=== PATIENT | female | born 1985 | race Hispanic/Latino ===

== ENCOUNTER 2017-06-28 20:47 | Emergency (ER) | payer OTHER, SELFPAY ==
[2017-06-28] MEDS ORDERED: Ibuprofen 800 MG TAB ONE (21:00)
[2017-06-28] MEDS ORDERED: Cephalexin 250 MG CAP ONE (21:00)
== END 2017-06-28 21:03 | disposition home or self-care (01) ==
LOC: NAV ERS 20:47
DX: L03.012 Cellulitis of left finger (principal); F17.210 Nicotine dependence, cigarettes, uncomplicated
CPT/HCPCS: 99282

== ENCOUNTER 2018-02-09 15:29 | Emergency (ER) | payer SELFPAY ==
[2018-02-09] MEDS ORDERED: Ondansetron ODT 4 MG TAB ONE ×2 (15:38→15:39)
[2018-02-09] MEDS ORDERED: Lidocaine Viscous Sol 2% 15 ml UD Cup ONE (15:38)
[2018-02-09] MEDS ORDERED: Mag-Al Plus 1200 MG/1200 MG/120 MG/30 ML UDCUP ONE (15:39)
[2018-02-09 17:02] LABS: Hemoglobin 11.2 g/dL (12.0-16.0); Mean Corpuscular HGB CONC 28.7 g/dL (32.0-36.0); Mean Corpuscular Volume 76.7 fl (81.0-99.0); Mean Platelet Volume 7.2 fL (7.4-10.4); Platelet Count 318 thou/uL (130-400); RBC Distribution Width 14.8 % (11.5-14.5); Red Blood Cell (RBC) Count 5.07 mill/uL (4.20-5.40); White Blood Cell (WBC) Count 11.9 thou/uL (4.8-10.8)
[2018-02-09 17:10] LABS: ALT (SGPT) 28 U/L (8-55); AST (SGOT) 41 U/L (5-34); Albumin 4.4 g/dL (3.5-5.0); Alkaline Phosphatase 94 U/L (40-150); Anion Gap 15 mmol/L (10-20); BUN (Urea Nitrogen) 10 mg/dL (7.0-18.7); Bilirubin, Total 0.4 mg/dL (0.2-1.2); Calc. Creatinine Clearance 0 mL/min (70-130); Calcium 9.1 mg/dL (7.8-10.44); Carbon Dioxide 24 mmol/L (22-29); Chloride 106 mmol/L (98-107); Estimated GFR-MDRD Greater than 90; Globulin 3.4 g/dL (2.4-3.5); Glucose 105 mg/dL (70-105); Lipase 30 U/L (8-78); Potassium 3.8 mmol/L (3.5-5.1); Protein, Total 7.8 g/dL (6.0-8.3); Sodium 141 mmol/L (136-145)
[2018-02-09 17:16] LABS: Bilirubin Negative (Negative); Blood, Urine Negative (Negative); Clarity Clear (Clear); Glucose, Urine (Dipstick) Negative (Negative); Leukocyte Negative (Negative); Nitrite Negative (Negative); Protein, Urine (Dipstick) 30 mg/dL (Neg-Trace); Specific Gravity, Urine 1.026 (1.002-1.036); Urobilinogen 0.2 mg/dL (0.2-1.0); pH, Urine 5.5 (5.0-9.0)
[2018-02-09 17:17] LABS: Pregnancy Test - Urine (BHCG) Negative (Negative); Pregu Control Background? CLEAR/WHITE (CLR/WHITE); Pregu Control Bar Appear? YES (CONTROL BAR); Specific Gravity 1.026 (1.002-1.036)
[2018-02-09 17:27] LABS: Bacteria/HPF 1+ HPF (None Seen); RBC/HPF 0-3 HPF (0-3); WBC/HPF 0-3 HPF (0-3)
[2018-02-09 17:42] LABS: #Lymphocytes 0.5 thou/uL (1.20-3.40); #Monocytes 0.7 thou/uL (0.11-0.59); #Neutrophils 10.7 thou/uL (1.40-6.50); %Basophils 0.2 % (0.0-1.0); %Eosinophils 0.1 % (0.0-10.0); %Lymphocytes 4.5 % (21.0-51.0); %Monocytes 5.5 % (0.0-10.0); %Neutrophils 89.7 % (42.0-75.0); Hypochromia SLIGHT = 6-15 cells (100X) (0-5/hpf); MDiff Complete? YES; Microcytosis SLIGHT = 6-15 cells (100X) (0-5/hpf); PLT Morphology Comment Appears Adequate
[2018-02-09] MEDS ORDERED: Diphenoxylate HCl/Atropine Tablet ONE (17:45)
== END 2018-02-09 17:52 | disposition home or self-care (01) ==
LOC: NAV ERS 15:29
DX: K52.9 Noninfective gastroenteritis and colitis, unspecified (principal); F17.210 Nicotine dependence, cigarettes, uncomplicated
CPT/HCPCS: 80053; 81003; 81015; 81025; 82150; 83690; 85025; 99284; Q0162

== ENCOUNTER 2018-04-16 10:14 | Emergency (ER) | payer SELFPAY ==
[2018-04-16] MEDS ORDERED: predniSONE 20 MG TAB ONE (10:46)
== END 2018-04-16 10:50 | disposition home or self-care (01) ==
LOC: NAV ERS 10:14
DX: T78.40XA Allergy, unspecified, initial encounter (principal); F17.210 Nicotine dependence, cigarettes, uncomplicated
CPT/HCPCS: 99283; J7506

== ENCOUNTER 2019-11-03 11:14 | Emergency (ER) | payer SELFPAY | END 2019-11-03 12:34 | disposition home or self-care (01) | LOC: NAV ERS 11:14 | DX: J11.1 Influenza due to unidentified influenza virus with other respiratory manifestations (principal); F17.210 Nicotine dependence, cigarettes, uncomplicated | CPT/HCPCS: 87804; 99283 ==

== ENCOUNTER 2024-10-23 16:26 | Emergency (ER) | payer BC ==
[2024-10-23] MEDS ORDERED: Ibuprofen 200 MG TAB ONE (17:09)
[2024-10-23] MEDS ORDERED: guaiFENesin ER 600 MG TAB ONE (18:02)
[2024-10-23] MEDS ORDERED: Acetaminophen 500 MG TAB ONE (18:02)
== END 2024-10-23 18:27 | disposition home or self-care (01) ==
LOC: NAV ERS 16:26
DX: J11.1 Influenza due to unidentified influenza virus with other respiratory manifestations (principal); F17.210 Nicotine dependence, cigarettes, uncomplicated
CPT/HCPCS: 87428; 99283

== ENCOUNTER 2025-03-26 16:57 | Emergency (ER) | payer BC ==
[2025-03-26] MEDS ORDERED: Naproxen 500 MG TAB ONE (17:20)
[2025-03-26] MEDS ORDERED: Acetaminophen 500 MG TAB ONE (17:20)
== END 2025-03-26 18:30 | disposition home or self-care (01) ==
LOC: NAV ERS 16:57
DX: S61.214A Laceration without foreign body of right ring finger without damage to nail, initial encounter (principal); F17.210 Nicotine dependence, cigarettes, uncomplicated; W23.0XXA Caught, crushed, jammed, or pinched between moving objects, initial encounter
CPT/HCPCS: 99283

== ENCOUNTER 2025-07-21 13:51 | Emergency (ER) | payer BC ==
[2025-07-21] MEDS ORDERED: Ibuprofen 200 MG TAB ONE (14:10)
== END 2025-07-21 14:40 | disposition home or self-care (01) ==
LOC: NAV ERS 13:51
DX: S63.616A Unspecified sprain of right little finger, initial encounter (principal); F17.210 Nicotine dependence, cigarettes, uncomplicated; W20.8XXA Other cause of strike by thrown, projected or falling object, initial encounter
CPT/HCPCS: 99283

== ENCOUNTER 2025-08-19 03:26 | Emergency (ER) | payer BC ==
[2025-08-19] MEDS ORDERED: Ketorolac Tromethamine 30 MG (1 mL) VIAL ONE (03:51)
[2025-08-19] MEDS ORDERED: Ondansetron PF 4 MG/2 ML Vial ONE (03:51)
[2025-08-19 03:56] LABS: Glucose, Urine (Dipstick) Negative (Negative); Leukocyte Negative (Negative); Protein, Urine (Dipstick) 30 mg/dL (Neg-Trace); Specific Gravity, Urine Greater/Equal 1.030 (1.005-1.030)
[2025-08-19 03:57] LABS: Pregnancy Test - Urine (BHCG) Negative (Negative); Pregu Control Background? CLEAR/WHITE (CLR/WHITE); Pregu Control Bar Appear? YES (CONTROL BAR)
[2025-08-19 03:59] LABS: #Basophils 0.1 thou/uL (0.0-0.2); #Eosinophils 0.0 thou/uL (0.0-0.7); #Lymphocytes 0.5 thou/uL (1.20-3.40); #Monocytes 0.5 thou/uL (0.11-0.59); #Neutrophils 7.9 thou/uL (1.40-6.50); %Basophils 1.0 % (0.0-1.0); %Eosinophils 0.0 % (0.0-10.0); %Lymphocytes 5.9 % (21.0-51.0); %Monocytes 6.0 % (0.0-10.0); %Neutrophils 87.0 % (42.0-75.0); Hematocrit 40.7 % (36.0-47.0); Hemoglobin 13.4 g/dL (12.0-16.0); Mean Corpuscular Hemoglobin 26.9 pg (27.0-31.0); Mean Corpuscular Volume 81.9 fl (78.0-98.0); Platelet Count 332 10x3/uL (130-400); Red Blood Cell (RBC) Count 4.97 mill/uL (4.20-5.40); White Blood Cell (WBC) Count 9.1 10x3/uL (4.8-10.8)
[2025-08-19 04:02] LABS: Bacteria/HPF 2+ HPF (None Seen); CAUTI Indications for Culture Dysuria,urgency,freq; Mucous/LPF 1+ LPF (<2+)
[2025-08-19 04:03] LABS: Urine Culture Reflex No No
[2025-08-19 04:13] LABS: ALT (SGPT) 26 U/L (Less than 34); AST (SGOT) 38 U/L (11-34); Albumin 4.0 g/dL (3.1-4.5); Alkaline Phosphatase 86 U/L (40-110); Anion Gap 17 mmol/L (10-20); BUN (Urea Nitrogen) 18 mg/dL (7.0-18.7); Bilirubin, Total 0.8 mg/dL (0.3-1.2); Calc. Creatinine Clearance 0 mL/min (70-130); Calcium 8.9 mg/dL (7.8-10.44); Carbon Dioxide 16 mmol/L (22-29); Chloride 107 mmol/L (98-107); Globulin 3.4 g/dL (2.4-3.5); Glucose 112 mg/dL (70-105); Lipase 10 U/L (8-78); Potassium 3.5 mmol/L (3.5-5.1); Sodium 136 mmol/L (136-145)
[2025-08-19] MEDS ORDERED: cefTRIAXone (ROCEPHIN) 1 GM VIAL ONE (04:34)
[2025-08-19 05:09] LABS: Bicarbonate (HCO3v) 20.2 mmol/L (22.0-28.0); CO2 Tension (PvCO2) 46.4 mmHg (42.0-51.0); Calcium, Ionized 1.18 mmol/L (1.15-1.33); Chloride 111 mmol/L (98-107); Hemoglobin - Calc 13.1 g/dL (12.0-16.0); Potassium 3.8 mmol/L (3.5-5.1); Sodium 140 mmol/L (138-145); T. Carbon Dioxide 21.6 mmol/L (22.0-28.0); vO2 Saturation-calc 49.7 % (60.0-85.0)
[2025-08-19] MEDS ORDERED: Sucralfate 1 GM TAB ONE (05:30)
== END 2025-08-19 05:44 | disposition home or self-care (01) ==
LOC: NAV ERS 03:26
DX: K29.70 Gastritis, unspecified, without bleeding (principal); E86.0 Dehydration; E87.20 Acidosis, unspecified; N39.0 Urinary tract infection, site not specified; F17.210 Nicotine dependence, cigarettes, uncomplicated
CPT/HCPCS: 80053; 81001; 81025; 82330; 82803; 83690; 85025; 87077; 87086; 96361; 96374; 96375; J0696; J1885; J2405; J7030; J7120